=== PATIENT | female | born 1990 | race Caucasian/White ===

== ENCOUNTER → 2017-06-06 | Outpatient (CLI) | payer OTHER ==
[~2017-06-06] MED LIST: ALBUAER3 INH; PREN1CAP7 PO
== END ==
LOC: HPND 10:32
PROVIDERS: ATTEND Obstetrics & Gynecology
DX: O09.292 Supervision of pregnancy with other poor reproductive or obstetric history, second trimester (principal); O09.892 Supervision of other high risk pregnancies, second trimester; Z3A.18 18 weeks gestation of pregnancy
CPT/HCPCS: 76811

== ENCOUNTER → 2017-08-21 | Outpatient (CLI) | payer OTHER ==
[~2017-08-21] MED LIST changes: +GABA100C4 PO; +NITR1CAP36 PO; +RANI150T PO
== END ==
LOC: HPND 12:39
PROVIDERS: ATTEND Obstetrics & Gynecology
DX: O35.2XX0 Maternal care for (suspected) hereditary disease in fetus, not applicable or unspecified (principal); O35.1XX0 Maternal care for (suspected) chromosomal abnormality in fetus, not applicable or unspecified
CPT/HCPCS: 76816

== ENCOUNTER 2017-10-24 22:13 | Inpatient (IN) | payer OTHER ==
[~2017-10-24] VITALS: Ht 170.2 cm; Wt 66.0 kg
[~2017-10-24 22:13] MED LIST changes: -NITR1CAP36 PO
[2017-10-24] MEDS ORDERED: LACTATED RINGER'S 1000 ML INJ 1,000 ML IV PRN (22:55)
[2017-10-24] MEDS ORDERED: CITRIC ACID-SODIUM CITRATE LIQ 30 ML UDC PO SCH (23:00)
[2017-10-24] MEDS ORDERED: SODIUM CHLORID 0.9% 500 ML INJ 500 ML IV PRN (23:00)
[2017-10-24] MEDS ORDERED: LIDOCAINE HCL 1% 50 ML VIAL I-DERMAL PRN (23:00)
[2017-10-24] MEDS ORDERED: MINERAL OIL 10 ML VIAL TOPICAL PRN (23:00)
[2017-10-24] MEDS ORDERED: LIDOCAINE HCL 1% 50 ML VIAL INFIL PRN (23:00)
[2017-10-24] MEDS ORDERED: PENICILLIN G POTASSIUM INJ 5,000,000 UNITS in SODIUM CHLORIDE 0.9% INJ 100 ML IV ONE (23:00)
[2017-10-24] MEDS ORDERED: OXYTOCIN 30 UNITS-500ML PREMIX 500 ML IV ONE (23:00)
--- NOTE | 2017-10-24 23:06 | HHI.HP ---
HPI Chief Complaint Vaginal bleeding Date Seen: Oct 24, 2017 Time Seen: 22:55 Travel History International Travel<30 Days: No Contact w/Intl Traveler<30Days: No Known Affected Area: No History of Present Illness HPI Patient is 27-year-old white female at 38 weeks [facility] and presents combining of vaginal spotting after she was checked in the office today. She was 3 cm in the office today. She's currently edna regularly though she started feeling them cervix is 4-5 cm 80% head at -1 station with bulging membranes. heart rate tracing is reactive Weeks Gestation: 38 Para: 0 : 1 Last Menstrual Period: Oct 24, 2017 History Past Medical History Narrative Medical Patient has history of Chiari malformation type I that has lead to seizure activity and she takes gabapentin for this last seizure was in February of this year, she had surgery related to the Chiari abnormality that was in 2009 the removal of the C3 vertebrae Post history of hepatitis C secondary to IV drug use in the past Past Surgical History Narrative Surgical Patient's had a cholecystectomy She's had the cervical vertebra surgery mentioned above Social History Narrative Social History Previous history of IV drug use but currently not using Alcohol Use: No Tobacco Use: Yes Substance Abuse: Yes Allergies-Medications (Allergen,Severity, Reaction): Coded Allergies: Sulfa (Sulfonamide Antibiotics) (Unverified Allergy, Severe, HIVES, ) Home Meds Active Scripts Gabapentin (Gabapentin) 100 Mg Cap, 100 MG PO BID for Seizure Control, #60 CAP 2 Refills Prov:Stephanie Lutz 10/24/17 Ranitidine (Ranitidine) 150 Mg Tab, 150 MG PO DAILY for Heartburn Management, # 30 TAB 1 Refill Prov:Yolanda Granger CNM [employer]PERATOR 10/03/17 Albuterol 8.5 GM Inh (Proair Hfa 8.5 GM Inh) 90 Mcg/Act Aer, 2 PUFF INH Q4-6H Y for SHORTNESS OF BREATH, #1 INHALER 2 Refills 108 mcg/actuation Prov:Stephanie LutzP 05/10/17 W/O Vit A W/ Fe Fumar (Citranatal Rush) 27-1-260 Mg Cap, 1 CAP PO DAILY for Nutritional Supplement, #30 CAP 11 Refills Prov:Stephanie Lutz ZEKE 05/10/17 Review of Systems General / Constitutional: No: Fever, Weight Gain, Chills, Other Eyes: No: Diploplia, Blurred Vision, Visual changes, Pain, Photophobia HENT: No: Headaches, Vertigo, Lightheadedness Cardiovascular: No: Irregular Rhythm, Chest Pain or Discomfort, Palpitations, Tachycardia, Syncope, Varicosities, Edema, Cyanosis Respiratory: No: Cough, Short of Breath, Other Gastrointestinal: No: Nausea, Vomiting, Diarrhea Genitourinary: Vaginal Bleeding, No: Decreased Urinary Output, Oliguria Musculoskeletal: No: Limited ROM, Weakness, Cramping, Edema, Pain Skin: No Rash, No Itching, No Dryness, No Lumps, No Change in Pigmentation, No Change in Nails, No Alopecia, No Lesions Neurologic: No: Weakness, Dizziness, Syncope, Focal Abnormalities, Coordination Problem, Headache, Slurred Speech, Seizures Psychiatric: No: Depression, Suicidal Ideations, Homicidal Ideation Endocrine: No: Heat Intolerance, Cold Intolerance, Polydipsia, Polyuria, Other Physical Exam Narrative GENERAL: Well-nourished, well-developed patient. SKIN: Warm and dry. HEAD: Normocephalic and atraumatic. EYES: No scleral icterus. No injection or drainage. ENT: No nasal drainage noted. Mucous membranes pink. Airway patent. NECK: Supple, trachea midline. No JVD. CARDIOVASCULAR: Regular rate and rhythm without murmurs, gallops, or rubs. RESPIRATORY: Breath sounds equal bilaterally. No accessory muscle use. BREASTS: Bilateral exam showed no masses , no retractions, no nipple discharge. ABDOMEN/GI: Abdomen soft, non-tender, bowel sounds present, no rebound, no guarding Gravid to [-38] weeks size Fundal Height: [38-] GENITOURINARY: External Genitalia: intact and normal in appearance BUS glands: [-] Cervix: [post-] Dilatation: [4-5-] Effacement: [80-] Station: [-1] Presentation: [-vtx] Membranes: [intact bulging] Uterine Contractions: [-]q 3 min FHT's: Category: [-1] Baseline: [133-] Reactive: [-yes] Variability: [mod-] Decels: [0-] EXTREMITIES: No cyanosis or edema. BACK: Nontender without obvious deformity. No CVA tenderness. NEUROLOGICAL: Awake and alert. Motor and sensory grossly within normal limits. Five out of 5 muscle strength in all muscle groups. Normal speech. Caprini VTE Risk Assessment Caprini VTE Risk Assessment: No/Low Risk (score <= 1) Caprini Risk Assessment Model Point Value = 1 Point Value = 2 Point Value = 3 Point Value = 5 Age 41-60 Minor surgery BMI > 25 kg/m2 Swollen legs Varicose veins or History of unexplained or recurrent spontaneous Oral contraceptives or hormone replacement Sepsis (< 1 month) Serious lung disease, including pneumonia (< 1 month) Abnormal pulmonary function Acute myocardial infarction Congestive heart failure (< 1 month) History of inflammatory bowel disease Medical patient at bed rest Age 61-74 Arthroscopic surgery Major open surgery (> 45 min) Laparoscopic surgery (> 45 min) Malignancy Confined to bed (> 72 hours) Immobilizing plaster cast Central venous access Age >= 75 History of VTE Family history of VTE Factor V Leiden Prothrombin [id number] Lupus anticoagulant Anticardiolipin antibodies Elevated serum homocysteine Heparin-induced thrombocytopenia Other congenital or acquired thrombophilia Stroke (< 1 month) Elective arthroplasty Hip, pelvis, or leg fracture Acute spinal cord injury (< 1 month) Prophylaxis Regimen Total Risk Factor Score Risk Level Prophylaxis Regimen 0-1 Low Early ambulation 2 Moderate Order ONE of the following: *Sequential Compression Device (SCD) *Heparin 5000 units SQ BID 3-4 Higher Order ONE of the following medications: *Heparin 5000 units SQ TID *Enoxaparin/Lovenox 40 mg SQ daily (WT < 150 kg, CrCl > 30 mL/min) *Enoxaparin/Lovenox 30 mg SQ daily (WT < 150 kg, CrCl > 10-29 mL/min) *Enoxaparin/Lovenox 30 mg SQ BID (WT < 150 kg, CrCl > 30 mL/min) AND/OR *Sequential Compression Device (SCD) 5 or more Highest Order ONE of the following medications: *Heparin 5000 units SQ TID (Preferred with Epidurals) *Enoxaparin/Lovenox 40 mg SQ daily (WT < 150 kg, CrCl > 30 mL/min) *Enoxaparin/Lovenox 30 mg SQ daily (WT < 150 kg, CrCl > 10-29 mL/min) *Enoxaparin/Lovenox 30 mg SQ BID (WT < 150 kg, CrCl > 30 mL/min) AND *Sequential Compression Device (SCD) Data Data Orders Orders Ob (2e) Additional Admit Info (10/24/17 22:54) Admit To Inpatient (10/24/17 ) Vital Signs (Adult) .Per protocol (10/24/17 22:55) Heart (10/24/17 22:55) Amnioinfusion (10/24/17 22:55) Urinary Catheter Management .ONCE (10/24/17 22:55) Diet Liquid (10/25/17 Breakfast) Lactated Ringer's 1000 Ml Inj (Lr 1000 M (10/24/17 22:55) Lactated Ringer's 1000 Ml Inj (Lr 1000 M (10/24/17 22:55) Sodium Chlorid 0.9% 500 Ml Inj (Ns 500 M (10/24/17 23:00) Sodium Chlor 0.9% 1000 Ml Inj (Ns 1000 M (10/24/17 23:15) Lidocaine 1% Inj (50 Ml) (Xylocaine 1% I (10/24/17 23:00) Citric Acid-Sodium Citrate Liq (Bicitra (10/24/17 23:00) Fentanyl Inj (Fentanyl Inj) (10/24/17 23:00) Fentanyl Inj (Fentanyl Inj) (10/24/17 23:00) Penicillin G Potassium Inj (Pfizerpen-G (10/24/17 23:00) Penicillin G Potassium Inj (Pfizerpen-G (10/25/17 03:00) Complete Blood Count With Diff (10/24/17 22:55) Hold Clot (10/24/17 22:55) Abo/Rh Blood Type (10/24/17 22:55) Urinalysis - C+S If Indicated (10/24/17 22:55) Drug Screen, Random Urine (10/24/17 22:55) Type And Screen (10/24/17 22:55) Resp Oxygen Non Rebreathe Mask (10/24/17 ) ^ Epidural / Intrathecal Infus (10/24/17 22:55) Oxytocin 30 Units-500ml Premix (Pitocin (10/24/17 23:00) Lidocaine 1% Inj (50 Ml) (Xylocaine 1% I (10/24/17 23:00) Light Mineral Oil (Muri-Lube Oil) (10/24/17 23:00) Group B Strep: Positive Assessment/Plan Assessment and Plan Patient 27-year-old white female at 38 weeks presents in early labor. She 's had vaginal bleeding at home small amount of red blood. No leakage of fluid. heart rate tracing is reactive and she is edna. Cervix is 4-5 cm 80% -1 station Plan to admit the patient for labor management/augmentation and anticipate vaginal delivery Mamadou Lazo II, MD Oct 24, 2017 23:06
[2017-10-24] MEDS ORDERED: SODIUM CHLOR 0.9% 1000 ML INJ 1,000 ML IV PRN (23:15)
[2017-10-25] VITALS (68 sets, daily range): BP systolic 96–165; BP diastolic 61–105; PULSE 70–104; RESP 16–20; TEMP 98–99.2; O2SAT 99
[2017-10-25] MEDS: LACTATED RINGER'S 1000 ML INJ 1,000 ML IV SCH ×2 (00:06→11:23)
[2017-10-25 01:30] LABS: BASOPHIL % 0.2 % (0.0-2.0); EOSINOPHIL # 0.1 TH/MM3 (0-0.4); EOSINOPHIL % 0.6 % (0.0-4.0); HEMATOCRIT 36.3 % (35.0-46.0); HEMO FLAGS DIFF FINAL; LYMPH % 21.4 % (9.0-44.0); LYMPHOCYTE # 3.9 TH/MM3 (1.0-4.8); MEAN CELL VOLUME 90.6 FL (80.0-100.0); MEAN CORPUSCULAR HEMOGLOBIN 30.8 PG (27.0-34.0); NEUT % 70.8 % (16.0-70.0); PLATELET COUNT 205 TH/MM3 (150-450); RED BLOOD COUNT 4.01 MIL/MM3 (4.00-5.30); WHITE BLOOD COUNT 18.3 TH/MM3 (4.0-11.0)
[2017-10-25 01:34] LABS: BLOOD, URINE TRACE (NEG); COMMENT (UR) CULT NOT INDICATED; CULTURE IF INDICATED CULT NOT INDICATED; GLUCOSE,URINE NEG (NEG); KETONE, URINE NEG (NEG); MUCUS URINE FEW /lpf (OCC); NITRITE,URINE NEG (NEG); SQUAMOUS EPITHELIAL CELL URINE 4 /hpf (0-5); URINE COLOR YELLOW (YELLW/STRAW)
[2017-10-25] MEDS: PENICILLIN G POTASSIUM INJ 2,500,000 UNITS in SODIUM CHLORIDE 0.9% INJ 100 ML IV SCH ×3 (03:16→11:23)
[2017-10-25] MEDS ORDERED: fentaNYL 2MCG-BUPIV 0.125% INJ 100 ML ONE (04:22)
[2017-10-25] MEDS ORDERED: fentaNYL 2MCG-BUPIV 0.125% 100 ML EPIDURAL SCH ×2 (05:00→05:45)
[2017-10-25] MEDS ORDERED: NO SYSTEM NARCOTICS PRN (05:00)
[2017-10-25] MEDS ORDERED: DO NOT ADMINISTER ANTICOAGULANTS PRN (05:00)
[2017-10-25] MEDS ORDERED: ePHEDrine/NS 25 MG/5 ML SYR IV PUSH PRN (05:30)
[2017-10-25] MEDS ORDERED: OXYTOCIN 30 UNITS-500ML PREMIX 500 ML IV SCH ×2 (07:30→14:15)
[2017-10-25] MEDS ORDERED: MULTIVIT/MIN/PREN/FOL AC/IRON PRENATAL TAB PO SCH (09:00)
[2017-10-25] MEDS ORDERED: GABAPENTIN 100 MG CAP PO SCH ×2 (09:00)
[2017-10-25] MEDS ORDERED: FAMOTIDINE 20 MG TAB PO SCH (09:00)
[2017-10-25] MEDS ORDERED: MISOPROSTOL 200 MCG TAB ONE (14:02)
[2017-10-25] MEDS ORDERED: ZOLPIDEM TARTRATE 5 MG TAB PO PRN (14:15)
[2017-10-25] MEDS ORDERED: ALUMINUM/MAGNESIUM/SIMETH 30 ML CUP PO PRN (14:15)
[2017-10-25] MEDS ORDERED: DOCUSATE SODIUM 50 MG/SENNA 8.6 MG TAB PO PRN (14:15)
[2017-10-25] MEDS ORDERED: BENZOCAINE 20% TOPICAL SPRAY 60 ML CAN TOPICAL PRN (14:15)
[2017-10-25] MEDS ORDERED: SODIUM CHLORIDE 0.9% FLUSH 10 ML FLUSH IV FLUSH PRN (14:15)
[2017-10-25] MEDS ORDERED: WITCH HAZEL 50%/GLYCERIN 12.5% 40 PAD JAR TOPICAL PRN (14:15)
[2017-10-25] MEDS ORDERED: ONDANSETRON ODT 4 MG TAB PO PRN (14:15)
[2017-10-25 14:20] LABS: BLOOD GAS BASE EXCESS -5.3 mmol/L (-2-2); BLOOD GAS O2 HGB SATURATION 19 % (90-100); CORD BLOOD GAS HCO3 23 mmol/L (21-29); CORD BLOOD GAS PCO2 75 mmHG (34-78); CORD BLOOD GAS PH 7.11 (7.14-7.42); CORD BLOOD GAS PO2 18 mmHG (3.0-40.0); DRAW SITE CORD BLOOD; STAT YES
--- NOTE | 2017-10-25 14:34 | PD.OB.DELI ---
Weeks gestation: 38 Pt started active labor?: Yes Medical induction of labor?: No Artificial rupture of membrane: No Anesthesia: Epidural Episiotomy: None Vaginal Delivery: Normal Presentation: Occiput anterior Nuchal Cord: None Delayed cord clamping (45 sec): Yes Infant: Male Delivery date: Oct 25, 2017 Delivery time: 13:57 One Minute : 7 Five Minute : 9 Weight: 3270g Placenta: Spontaneous delivery Repair: Vicryl running (R labial) Estimated blood loss: 400cc Ted Morris MD Oct 25, 2017 14:34
[2017-10-25] MEDS ORDERED: DIPHTH/TETANUS/ACEL PERTUSSIS (BOOSTER) 0.5 ML VIAL/PFS IM ONE (16:00)
[2017-10-25] MEDS ORDERED: MEASLES, MUMPS, RUBELLA VACCINE 0.5 ML VIAL SQ ONE (16:00)
[2017-10-25] MEDS: ACETAMINOPHEN 325 MG TAB PO PRN (20:42)
[2017-10-25] MEDS: IBUPROFEN 800 MG TAB PO PRN (20:42)
[2017-10-26] MEDS: ACETAMINOPHEN 325 MG TAB PO PRN ×3 (04:54→23:11)
[2017-10-26] MEDS: IBUPROFEN 800 MG TAB PO PRN ×3 (04:55→23:11)
[2017-10-26 08:00] VITALS: BP 131/83; PULSE 76; RESP 18; TEMP 97.9; O2SAT 98
--- NOTE | 2017-10-26 08:44 | HHI.OB ---
Subjective Post Day: 1 Remarks Ms Rodas had no acute events overnight. AFVSS this morning. Lochia is normal. Pt pain controlled, ambulating w/o dizziness, taking PO, voiding, flatus, and a small BM this morning. Pt is a little frustrated trying to breastfeed. Denies CP , SOB, N/V/D and DVT pain. Objective Vitals/I&O Vital Signs Date Time Temp Pulse Resp B/P (MAP) Pulse Ox O2 Delivery O2 Flow Rate FiO2 10/25/17 19:00 98.5 86 16 129/67 (87) 10/25/17 16:38 98.3 10/25/17 16:38 92 18 144/88 (106) 99 10/25/17 15:30 89 136/79 (98) 10/25/17 15:19 18 10/25/17 15:15 86 142/86 (104) 10/25/17 15:02 92 143/71 (95) 10/25/17 14:55 18 10/25/17 14:45 89 147/87 (107) 10/25/17 14:40 18 10/25/17 14:30 89 146/91 (109) 10/25/17 14:21 86 140/88 (105) 10/25/17 14:21 18 10/25/17 14:07 86 141/77 (98) 10/25/17 14:05 93 142/87 (105) 10/25/17 14:04 98.6 10/25/17 13:24 88 143/88 (106) 10/25/17 12:57 78 153/98 (116) 10/25/17 12:45 72 165/95 (118) 10/25/17 12:43 18 10/25/17 12:09 89 157/90 (112) 10/25/17 12:00 86 154/95 (114) 10/25/17 11:52 99.1 10/25/17 11:45 18 10/25/17 11:30 81 143/91 (108) 10/25/17 11:26 18 10/25/17 11:23 18 10/25/17 11:17 81 152/97 (115) 10/25/17 11:00 84 138/92 (107) 10/25/17 10:57 89 126/82 (97) 10/25/17 10:56 18 10/25/17 10:30 91 138/86 (103) 10/25/17 10:00 83 135/88 (104) 10/25/17 09:58 98.0 10/25/17 09:55 18 10/25/17 09:54 83 141/96 (111) 10/25/17 09:30 86 140/97 (111) 10/25/17 09:26 132/93 (106) 10/25/17 09:26 100 10/25/17 09:24 139/100 (113) 10/25/17 09:24 104 10/25/17 09:20 135/105 (115) 10/25/17 09:20 101 10/25/17 09:00 90 116/76 (89) Objective Remarks GENERAL: Well-nourished, well-developed patient lying in bed. CARDIOVASCULAR: Regular rate and rhythm without murmur, gallop, or rub. RESPIRATORY: Breath sounds equal bilaterally in all lung meier. No accessory muscle use. ABDOMEN/GI: Abdomen soft, non-tender. appropriately distended. Fundus: Firm, non-tender at umbilicus. GENITOURINARY: Light to moderate bleeding. EXTREMITIES: No cyanosis or edema, non-tender, without signs of DVT. Medications and IVs Current Medications Medications (Trade) Dose Ordered Sig/Kari Route Start Time Stop Time Status Last Admin (NS Flush) 2 ml BID IV FLUSH 10/25/17 21:00 (NS Flush) 2 ml UNSCH PRN IV FLUSH 10/25/17 14:15 (Tylenol) 650 mg Q4H PRN PO 10/25/17 14:15 10/26/17 04:54 (Motrin) 800 mg Q8H PRN PO 10/25/17 14:15 10/26/17 04:55 (Americaine 20% Top Spr) 1 spray Q4H PRN TOPICAL 10/25/17 14:15 10/25/17 20:42 (Tucks Pads) 1 applic QID PRN TOPICAL 10/25/17 14:15 10/25/17 20:42 (Emerald-Colace) 2 tab Q12H PRN PO 10/25/17 14:15 10/25/17 20:42 (Ambien) 5 mg HS PRN PO 10/25/17 14:15 (Mag-Al Plus Susp Liq) 15 ml Q8H PRN PO 10/25/17 14:15 (Zofran Odt) 4 mg Q6H PRN PO 10/25/17 14:15 (Neurontin) 100 mg BID PO 10/26/17 09:00 Assessment/Plan Assessment and Plan 27YO delivered via at 38 weeks. AFVSS. Lochia normal. Pt pain controlled on ibuprofen, ambulating, taking PO, voiding, flatus and stooling. Trying to breastfeed. Denies CP, SOB, N/V/D, DVT pain. PLAN: -Routine care -Pain control with ibuprofen, and if necessary, percocet PRN -Advised to ambulate OOB; no baths--only showers for next 2-3 weeks -Pelvic rest with no sexual intercourse for 6 weeks -Will follow up with RN INTEGRATED in 6 weeks -Pt does not want depo provera; will discuss control options with RN INTEGRATED at follow up visit Anticipate discharge tomorrow Pt seen and discussed with Luiz Morris and Cory Leal MD R1 Oct 26, 2017 08:44
[2017-10-26] MEDS: GABAPENTIN 100 MG CAP PO SCH ×2 (09:11→22:44)
[2017-10-26] MEDS ORDERED: IBUP1TAB7 PO (09:56)
--- NOTE | 2017-10-26 09:58 | HHI.DCPOC ---
Discharge Care Plan Report Symptoms to Your Doctor -Temperature above 100.5 degrees -Redness, of incision or excessive or foul smelling drainage -Unusual pain or calf pain -Increased vaginal bleeding -Painful or difficulty urinating -Feelings of extreme sadness or anxiety after 2 weeks Goals to Promote Your Health * To prevent worsening of your condition and complications, please take medications as prescribed. Please take only showers (no baths) for the next 2-[address] nothing in your vagina for 6 weeks (including no sexual intercourse). * To maintain your health at the optimal level, please follow up with your OB/ NECKTIE MAKER in 6 weeks. Directions to Meet Your Goals Take your medications as prescribed Follow your dietary instruction Follow activity as directed Ensure plenty of rest for recovery Drink fluids for hydration Keep your appointments as scheduled Take your immunizations and boosters as scheduled If your symptoms worsen call your PCP, if no PCP go to Urgent Care Center or Emergency Room Smoking is Dangerous to Your Health. Avoid second hand smoke Call the 24-hour crisis hotline for domestic abuse at Cory Kent MD R1 Oct 26, 2017 09:58
[2017-10-26] MEDS: SODIUM CHLORIDE 0.9% FLUSH 10 ML FLUSH IV FLUSH SCH ×2 (11:03→21:00)
--- NOTE | 2017-10-26 11:07 | HHI.FPPN ---
Addendum to progress note ADDENDUM Reason for addendum: Additonal documentation Additional information This morning pt with increased heartburn. Pt requested Zantac and order 150mg q12h PRN. (Cory Kent MD R1) Additional information Patient seen and evaluated with resident under direct supervision, agree with assessment and plan. (Pascual Brooks MD) Cory Kent MD R1 Oct 26, 2017 11:07 Pascual Brooks MD Oct 26, 2017 11:12
[2017-10-26] MEDS ORDERED: FAMOTIDINE 20 MG TAB PO PRN (11:45)
[2017-10-26] MEDS ORDERED: DIPHTH/TETANUS/ACEL PERTUSSIS (BOOSTER) 0.5 ML VIAL/PFS IM ONE (16:15)
[2017-10-27 08:00] VITALS: BP 142/86; PULSE 76; RESP 16; TEMP 98.1
[2017-10-27] MEDS: IBUPROFEN 800 MG TAB PO PRN (08:11)
[2017-10-27] MEDS: ACETAMINOPHEN 325 MG TAB PO PRN (08:11)
[2017-10-27] MEDS: GABAPENTIN 100 MG CAP PO SCH (08:12)
[2017-10-27] MEDS ORDERED: ORTH0.35 PO (10:09)
--- NOTE | 2017-10-27 10:10 | HHI.OB ---
Subjective Post Day: 2 Remarks Patient is a 27-year-old delivered at 38 weeks. Patient is day 2 after . Patient's pain is well-controlled. Patient reports eating and drinking without any nausea or vomiting. Patient reports minimal bleeding. Patient has passed gas and bowel movements. Patient is walking without lower extremity pain or shortness of breath. Patient reports desire for contraception with OCPs and both formula- and breast-feeding. (Federico Russ MD R2) Remarks Patient seen and evaluated with resident under direct supervision, agree with assessment and plan. (Pascual Brooks MD) Objective Vitals/I&O Vital Signs Date Time Temp Pulse Resp B/P (MAP) Pulse Ox O2 Delivery O2 Flow Rate FiO2 10/27/17 08:00 98.1 76 16 142/86 (104) Objective Remarks GENERAL: Well-nourished, well-developed patient lying in bed. CARDIOVASCULAR: Regular rate and rhythm without murmur, gallop, or rub. RESPIRATORY: Breath sounds equal bilaterally in all lung meier. No accessory muscle use. ABDOMEN/GI: Abdomen soft, non-tender. appropriately distended. Fundus: Firm, non-tender at umbilicus. GENITOURINARY: Light to moderate bleeding. EXTREMITIES: No cyanosis or edema, non-tender, without signs of DVT. Medications and IVs Current Medications Medications (Trade) Dose Ordered Sig/Kari Route Start Time Stop Time Status Last Admin (NS Flush) 2 ml BID IV FLUSH 10/25/17 21:00 (NS Flush) 2 ml UNSCH PRN IV FLUSH 10/25/17 14:15 (Tylenol) 650 mg Q4H PRN PO 10/25/17 14:15 10/27/17 08:11 (Motrin) 800 mg Q8H PRN PO 10/25/17 14:15 10/27/17 08:11 (Americaine 20% Top Spr) 1 spray Q4H PRN TOPICAL 10/25/17 14:15 10/25/17 20:42 (Tucks Pads) 1 applic QID PRN TOPICAL 10/25/17 14:15 10/25/17 20:42 (Emerald-Colace) 2 tab Q12H PRN PO 10/25/17 14:15 10/25/17 20:42 (Ambien) 5 mg HS PRN PO 10/25/17 14:15 (Mag-Al Plus Susp Liq) 15 ml Q8H PRN PO 10/25/17 14:15 (Zofran Odt) 4 mg Q6H PRN PO 10/25/17 14:15 (Neurontin) 100 mg BID PO 10/26/17 09:00 10/27/17 08:12 (Pepcid) 20 mg Q12HR PRN PO 10/26/17 11:45 10/26/17 11:59 (Federico Russ MD R2) Assessment/Plan Problem List: (1) Normal vaginal delivery of first ICD Codes: O80 - Encounter for full-term uncomplicated delivery Assessment and Plan 27YO delivered via at 38 weeks. AFVSS. Lochia normal. Pt pain controlled on ibuprofen, ambulating, taking PO, voiding, flatus and stooling. Trying to breastfeed. Denies CP, SOB, N/V/D, DVT pain. PLAN: -Routine care -Pain control with ibuprofen, and if necessary, Percocet PRN -Advised to ambulate OOB; no baths--only showers for next 2-3 weeks -Pelvic rest with no sexual intercourse for 6 weeks -Will follow up with [facility]IST[facility] [employer] in 6 weeks -Contraception: OCPs Anticipate discharge today Pt discussed with Dr. Brooks (Federico Russ MD R2) Federico Russ MD R2 Oct 27, 2017 10:10 Pascual Brooks MD Oct 29, 2017 09:12
== END 2017-10-27 17:45 | disposition home or self-care (01) | DRG 774 ==
LOC: HOBED 22:13 → H2EA 22:55 → H1EA 10-25 16:16
PROVIDERS: ADMIT Obstetrics & Gynecology Maternal & Fetal Medicine; ATTEND Obstetrics & Gynecology Maternal & Fetal Medicine
PROC: 10E0XZZ Delivery of Products of Conception, External Approach (ICD-10-PCS; principal; 2017-10-25)
PROC: 0HQ9XZZ Repair Perineum Skin, External Approach (ICD-10-PCS; 2017-10-25)
DX: O67.8 Other intrapartum hemorrhage (principal); G93.5 Compression of brain; O99.354 Diseases of the nervous system complicating childbirth; O70.0 First degree perineal laceration during delivery; R12 Heartburn; O99.824 Streptococcus B carrier state complicating childbirth; Z37.0 Single live birth; Z3A.38 38 weeks gestation of pregnancy; Z72.0 Tobacco use; Z86.19 Personal history of other infectious and parasitic diseases; Z88.2 Allergy status to sulfonamides
CPT/HCPCS: 80307; 81001; 82805; 85025; 86850; 86900; 86901; 90715; J2540; J2590; J3010; J7120

== ENCOUNTER 2017-11-05 18:02 | Emergency (ER) | payer OTHER ==
[~2017-11-05] VITALS: Ht 170.2 cm; Wt 56.4 kg
[~2017-11-05 18:02] MED LIST changes: +IBUP1TAB7 PO; +ORTH0.35 PO
[2017-11-05 18:04] VITALS: BP 151/79; PULSE 108; RESP 18; TEMP 98.4; O2SAT 96
[2017-11-05 20:39] LABS: BASOPHIL # 0.1 TH/MM3 (0-0.2); BASOPHIL % 0.4 % (0.0-2.0); EOSINOPHIL # 0.2 TH/MM3 (0-0.4); HEMATOCRIT 40.5 % (35.0-46.0); HEMOGLOBIN 13.2 GM/DL (11.6-15.3); LYMPH % 30.6 % (9.0-44.0); LYMPHOCYTE # 4.8 TH/MM3 (1.0-4.8); MEAN CELL VOLUME 91.9 FL (80.0-100.0); MEAN CORPUSCULAR HEMOGLOBIN 30.1 PG (27.0-34.0); MEAN CORPUSCULAR HGB CONC 32.7 % (32.0-36.0); MEAN PLATELET VOLUME 7.9 FL (7.0-11.0); MONO % 3.6 % (0.0-8.0); MONOCYTE # 0.6 TH/MM3 (0-0.9); NEUT % 64.4 % (16.0-70.0); PLATELET COUNT 431 TH/MM3 (150-450); RED CELL DISTRIBUTION WIDTH 14.2 % (11.6-17.2); WHITE BLOOD COUNT 15.6 TH/MM3 (4.0-11.0)
[2017-11-05 20:56] LABS: BICARBONATE 24.8 MEQ/L (21.0-32.0); CALCIUM 9.4 MG/DL (8.5-10.1); CREATININE 0.78 MG/DL (0.50-1.00)
[2017-11-05 21:13] LABS: BACTERIA, URINE FEW /hpf; BILIRUBIN, URINE NEG (NEG); BLOOD, URINE LARGE (NEG); GLUCOSE,URINE NEG (NEG); KETONE, URINE NEG (NEG); MUCUS URINE MANY /lpf (OCC); NITRITE,URINE NEG (NEG); URINE LEUKOCYTE ESTERASE NEG (NEG)
[2017-11-05 21:14] LABS: URINE COLOR RED (YELLW/STRAW)
[2017-11-05 21:34] VITALS: BP 126/74; PULSE 90; RESP 18; O2SAT 98
--- NOTE | 2017-11-05 22:59 | RADRPT ---
EXAM DATE/TIME: 11/05/2017 21:53 [facility] COMPARISON: No previous studies available for comparison. INDICATIONS : Bleeding 1 week post . MEDICAL HISTORY : Gastroesophageal reflux disease. Migraine. Asthma. Substance use. Anxiety. SURGICAL HISTORY : Cholecystectomy. ENCOUNTER: Initial ACUITY: PAIN SCORE: 4/10 LOCATION: Bilateral pelvis MEASUREMENTS: UTERUS: 9.6 x 9.7 x 7.2 cm ENDOMETRIAL STRIPE: >20 mm RIGHT OVARY: 2.3 x 1.5 x 1.4 cm LEFT OVARY: 2.6 x 1.8 x 1.9 cm FINDINGS: Post gravid uterus has a irregularly echogenic endometrial cavity which measures in excess of 3.1 cm. There are mixed hyper and intermediate echogenic areas. No flow is seen with in the endometrium on color Doppler. Both ovaries are identified and have a normal appearance. No evidence of free fluid . CONCLUSION: Irregular echotexture thickened endometrium measuring up to 3 cm in thickness. No focal areas of hyp eremia in the endometrium. Corey Claudio MD on November 05, 2017 at 22:55 Board Certified Radiologist. This report was verified electronically.
[2017-11-05] MEDS ORDERED: AMOX875T PO (23:29)
[2017-11-05] MEDS ORDERED: CYTO200T RECTAL (23:29)
--- NOTE | 2017-11-05 23:29 | PD ---
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 She said it had been decreasing since giving , but in the past day she is now passing clots and has some lower abdominal cramping. She denies fever or chills. She denies nausea or vomiting. She denies any dysuria. She denies lightheadedness, palpitations, shortness of breath. PFSH Past Medical History ADHD: Yes Asthma: Yes Anxiety: Yes Depression: No Cardiovascular Problems: No Diminished Hearing: No GERD: Yes Genitourinary: Yes Hiatal Hernia: No Musculoskeletal: Yes (SCOLIOSIS) Psychiatric: Yes Respiratory: Yes (asthma) Migraines: Yes Ulcer: No ?: Not Past Surgical History Cholecystectomy: Yes (03/2004) Other Surgery: Yes Social History Alcohol Use: No Tobacco Use: Yes Substance Use: Yes Allergies-Medications (Allergen,Severity, Reaction): Coded Allergies: Sulfa (Sulfonamide Antibiotics) (Unverified Allergy, Severe, HIVES, ) Reported Meds & Prescriptions Reported Meds & Active Scripts Active Gabapentin 100 Mg Cap 100 Mg PO BID Ranitidine (Ranitidine HCl) 150 Mg Tab 150 Mg PO DAILY Proair Hfa 8.5 GM Inh (Albuterol Sulfate) 90 Mcg/Act Aer 2 Puff INH Q4-6H PRN 108 mcg/actuation Citranatal [facility] ( W/O Vit A W/ Fe Fumar) 27-1-260 Mg Cap 1 Cap PO DAILY Review of Systems Except as stated in HPI: all other systems reviewed are Neg General / Constitutional: No: Fever, Chills HENT: No: Headaches, Lightheadedness Cardiovascular: No: Chest Pain or Discomfort, Palpitations Respiratory: No: Shortness of Breath Gastrointestinal: Positive: Abdominal Pain, No: Nausea, Vomiting Genitourinary: Positive: Vaginal Bleeding Musculoskeletal: No: Myalgias, Edema Skin: No Rash, No Change in Pigmentation Neurologic: No: Weakness, Dizziness Physical Exam Narrative GENERAL: Awake and alert, in no acute distress. SKIN: Focused skin assessment warm/dry. HEAD: Atraumatic. Normocephalic. EYES: Pupils equal and round. No scleral icterus. ENT: Mucous membranes pink and moist. NECK: Trachea midline. No JVD. CARDIOVASCULAR: Regular rate and rhythm. No murmur appreciated. RESPIRATORY: No accessory muscle use. Clear to auscultation. Breath sounds equal bilaterally. GASTROINTESTINAL: Abdomen soft, non-tender, nondistended. MUSCULOSKELETAL: No obvious deformities. No clubbing. No cyanosis. No edema. NEUROLOGICAL: Awake and alert. No obvious cranial nerve deficits. Motor grossly within normal limits. Normal speech. PSYCHIATRIC: Appropriate mood and affect; insight and judgment normal. Data Data Last Documented VS Vital Signs Date Time Temp Pulse Resp B/P (MAP) Pulse Ox O2 Delivery O2 Flow Rate FiO2 11/05/17 21:34 90 18 126/74 (91) 98 Room Air 11/05/17 18:04 98.4 Orders Orders Complete Blood Count With Diff (11/05/17 18:28) Basic Metabolic Panel (Bmp) (11/05/17 18:28) Act Partial Throm Time (Ptt) (11/05/17 18:28) Prothrombin Time / Inr (Pt) (11/05/17 18:28) Urinalysis - C+S If Indicated (11/05/17 18:28) Urine Culture (11/05/17 19:35) Us Pelvis Comp W Doppler (11/05/17 ) Labs Laboratory Tests Test 11/05/17 19:35 White Blood Count 15.6 TH/MM3 Red Blood Count 4.40 MIL/MM3 Hemoglobin 13.2 GM/DL Hematocrit 40.5 % Mean Corpuscular Volume 91.9 FL Mean Corpuscular Hemoglobin 30.1 PG Mean Corpuscular Hemoglobin Concent 32.7 % Red Cell Distribution Width 14.2 % Platelet Count 431 TH/MM3 Mean Platelet Volume 7.9 FL Neutrophils (%) (Auto) 64.4 % Lymphocytes (%) (Auto) 30.6 % Monocytes (%) (Auto) 3.6 % Eosinophils (%) (Auto) 1.0 % Basophils (%) (Auto) 0.4 % Neutrophils # (Auto) 10.0 TH/MM3 Lymphocytes # (Auto) 4.8 TH/MM3 Monocytes # (Auto) 0.6 TH/MM3 Eosinophils # (Auto) 0.2 TH/MM3 Basophils # (Auto) 0.1 TH/MM3 CBC Comment DIFF FINAL Differential Comment Prothrombin Time 10.0 SEC Prothromb Time International Ratio 1.0 RATIO Activated Partial Thromboplast Time 27.4 SEC Urine Color RED Urine Turbidity TURBID Urine pH 6.0 Urine Specific [place] 1.033 Urine Protein 100 mg/dL Urine Glucose (UA) NEG mg/dL Urine Ketones NEG mg/dL Urine Occult Blood LARGE Urine Nitrite NEG Urine Bilirubin NEG Urine Urobilinogen 2.0 MG/DL Urine Leukocyte Esterase NEG Urine RBC /hpf Urine WBC 94 /hpf Urine Bacteria FEW /hpf Urine Mucus MANY /lpf Microscopic Urinalysis Comment CULTURE INDICATED Blood Urea Nitrogen 20 MG/DL Creatinine 0.78 MG/DL Random Glucose 76 MG/DL Calcium Level 9.4 MG/DL Sodium Level 140 MEQ/L Potassium Level 3.8 MEQ/L Chloride Level 109 MEQ/L Carbon Dioxide Level 24.8 MEQ/L Anion Gap 6 MEQ/L Estimat Glomerular Filtration Rate 89 ML/MIN MDM Medical Decision Making Medical Screen Exam Complete: Yes Emergency Medical Condition: Yes Medical Record Reviewed: Yes Differential Diagnosis retained products of conception vs bleeding vs UTI Narrative Course Patient is a 27-year-old female comes in complaining of increased vaginal bleeding since giving on October 25. IV established, labs sent. Labs show hemoglobin of 13.2. White blood cell count is elevated to 15.6. Ultrasound performed shows endometrial thickening. I spoke with the OB hospitalists who recommends giving her a prescription for Cytotec, 800 g rectally. She is advised of these instructions. Advised that she should return for worsening bleeding, feelings of shortness of breath, chest pain, palpitations, dizziness. Advised to return for signs of infection. Advised follow-up with OB. Urine is dirty. Given a prescription for amoxicillin. Advised to return as needed for any worsening symptoms. Last 24 hours Impressions Pelvis Ultrasound 11/05/17 0000 Signed Impressions: Service Date/Time: Sunday, November 05, 2017 21:53 - CONCLUSION: Irregular echotexture thickened endometrium measuring up to 3 cm in thickness. No focal areas of hyperemia in the endometrium. Corey Claudio MD Diagnosis Primary Impression: Vaginal bleeding Additional Impression: UTI (urinary tract infection) Qualified Codes: N30.01 - Acute cystitis with hematuria Patient Instructions: General Instructions, Bleeding (ED), Urinary Tract Infection in Women (ED) Additional Instructions: Use of Cytotec as directed. Follow-up with OB. Return to the ED as needed for any worsening symptoms. Scripts Amoxicillin (Amoxicillin) 875 Mg Tab 875 MG PO BID for Infection for 7 Days, #14 TAB 0 Refills Prov: Mercedez Kim MD 11/05/17 Misoprostol (Cytotec) 200 Mcg Tab 800 MCG RECTAL ONCE, #1 TAB 0 Refills Prov: Mercedez Kim MD 11/05/17 Disposition: 01 DISCHARGE HOME Condition: Stable Mercedez Kim MD Nov 05, 2017 23:29
== END 2017-11-05 23:43 | disposition home or self-care (01) ==
LOC: NEPD 18:02
DX: O72.2 Delayed and secondary postpartum hemorrhage (principal); O86.22 Infection of bladder following delivery; B96.89 Other specified bacterial agents as the cause of diseases classified elsewhere
CPT/HCPCS: 76856; 80048; 81001; 85025; 85610; 85730; 87086; 93975; 99284